=== PATIENT | female | born 1985 | race Caucasian/White ===

== ENCOUNTER → 2021-05-04 | Day surgery (SDC) | payer OTHER ==
[~2021-05-04] VITALS: Ht 152.4 cm; Wt 56.7 kg
[~2021-05-04] MED LIST: COLACE100 MG PO; GABAPENTIN600 MG PO; LAMICTAL100 MG PO; NORCO 5-325 TA1 EACH PO; SYMBICORT 80-10.2 GM INH; VENTOLIN HFA IN18 GM INH; ZONEGRAN100 MG PO
[2021-05-04 09:26] LABS: HCG (URINE) SCREEN NEGATIVE (NEGATIVE)
[2021-05-04 09:50] LABS: BASOPHIL 0.8 % (0-2); EOSINOPHIL 2.3 % (0-5); HCT 41.4 % (37.0-47.0); MCH 32.8 pg (25.0-31.0); MCHC 33.8 g/dL (32.0-36.0); MONOCYTE 5.6 % (0-12); MPV 9.6 fL (6.0-9.5); NEUTROPHIL 65.1 % (41-80); NRBC 0; PLT 185 K/uL (150-400); RBC 4.27 M/uL (4.20-5.40); RDW 12.8 % (11.5-14.0); WBC 5.2 K/uL (4.0-10.5)
== END | disposition home or self-care (01) ==
LOC: FAS 08:28
PROVIDERS: Oral & Maxillofacial Surgery
DX: K02.9 Dental caries, unspecified (principal); J45.909 Unspecified asthma, uncomplicated; F17.210 Nicotine dependence, cigarettes, uncomplicated; Z88.1 Allergy status to other antibiotic agents; Z88.0 Allergy status to penicillin; Z88.5 Allergy status to narcotic agent; Z79.891 Long term (current) use of opiate analgesic; Z79.899 Other long term (current) drug therapy
CPT/HCPCS: 36415; 84703; 85025; J1100; J2250; J2405; J2704; J3010; J7120